=== PATIENT | female | born 1990 | race Caucasian/White ===

== ENCOUNTER 2017-12-22 10:45 | Emergency (ER) | payer OTHER ==
[~2017-12-22] VITALS: Ht 162.6 cm; Wt 59.0 kg
--- NOTE | 2017-12-22 10:50 | NUR ---
[id number] FROM WORK FOR SYNCOPE, NO TRAUMA. BS-68. A/OX 4 AT THIS TIME. BREATHING EVEN AND UNLABORED. NO SOB, NAD, VITALS STABLE. SAFETY AND COMFORT MEASURES IN PLACE. IV INTACT AND PATENT ON LAC, 20G, INSERTED SURETY BOND AGENT. AWAITING MD ORDERS.
--- NOTE | 2017-12-22 10:58 | NUR ---
SPACE PHYSICIST AT BEDSIDE FOR BLOOD DRAW.
[2017-12-22] MEDS ORDERED: IV NS 0.9% 500 ML BAG IV ONE (11:00)
[2017-12-22 11:07] LABS: BASOPHILS % (AUTO) 0.8 % (0.0-2.0); EOSINOPHILS % (AUTO) 0.7 % (0.0-6.0); HEMATOCRIT 38 % (33-45); HEMOGLOBIN 12.8 g/dL (11.5-14.8); LYMPHOCYTES # (AUTO) 1.5 /CMM (0.8-4.8); LYMPHOCYTES % (AUTO) 29.9 % (20.0-44.0); MEAN CORPUSCULAR HGB CONC 34 g/dl (31.0-36.0); MEAN CORPUSCULAR VOLUME 89 fL (82-100); MONOCYTES # (AUTO) 0.4 /CMM (0.1-1.30); MONOCYTES % (AUTO) 6.9 % (2.0-12.0); NEUTROPHILS # (AUTO) 3.2 /CMM (1.8-8.9); NEUTROPHILS % (AUTO) 61.7 % (43.0-81.0); PLATELET COUNT (AUTO) 302 /CMM (150-450); RDW COEFFICIENT OF VARIATION 12.3 (11.5-15.0); RED BLOOD CELL COUNT(AUTO) 4.27 MIL/uL (4.0-5.2); WHITE BLOOD COUNT (AUTO) 5.1 K/uL (4.3-11.0)
[2017-12-22 11:14] LABS: CALCIUM, SERUM 9.1 mg/dL (8.5-10.1); CARBON DIOXIDE 24 mmol/L (21-32); CHLORIDE 100 mmol/L (98-107); CREATININE 0.7 mg/dL (0.6-1.3); GLUCOSE 98 mg/dL (74-106); POTASSIUM 3.5 mmol/L (3.5-5.1); SODIUM SERUM 135 mmol/L (136-145); UREA NITROGEN, BLOOD 19 mg/dL (7-18)
[2017-12-22 11:24] LABS: TROPONIN I < 0.017 ng/mL (0.00-0.056)
--- NOTE | 2017-12-22 11:24 | NUR ---
URINE OBTAINED AND SENT TO LAB.
[2017-12-22 11:40] VITALS: BP 112/68
== END 2017-12-22 11:56 | disposition home or self-care (01) ==
LOC: ER 10:47
DX: R55 Syncope and collapse (principal)
CPT/HCPCS: 36415; 80048; 84484; 84703; 85025; 93005; 99285; A4606; J7040; Z7610